=== PATIENT | female | born 1945 | race Caucasian/White ===

== ENCOUNTER 2018-03-08 08:46 | Emergency (ER) | payer MEDICARE, BC ==
[2018-03-08] MEDS ORDERED: predniSONE TAB* 20 MG PO ONE (09:05)
[2018-03-08] MEDS ORDERED: diPHENhydraMINE PO* 25 MG PO ONE (09:05)
[2018-03-08] MEDS ORDERED: Famotidine TAB* 20 MG PO ONE (09:05)
--- NOTE | 2018-03-08 09:10 | ED ---
Allergic Reaction/Systemic - HPI Summary HPI Summary: Pt is a 72 y/o female who presents to the ED c/o allergic reaction s/p insect stings. She states this morning she was stung outside her house three times on both wrists and her lower left leg. Pt states that these were not normal bees , and describes them as tiny, yellow, and swarming. She has been stung by both bees and yellowjackets in the past and has not had this sort of allergic reaction. Pt took 2 chlorotrimetron [employer]. She c/o dizziness, lightheadedness, itching, pain and sensitivity to the sting sites, anxiety, and mild SOB related to anxiety. Pt denies any LOC, headache, blurry vision, double vision, ear ache , sore throat, CP, new back pain, hematuria, or hematochezia. She describes her pain as a 7/10 in severity. Pt states her dog was swatting at his face because he was being swarmed by the insects, but he appeared normal afterwards. - History of Current Complaint Chief Complaint: EDAllergicReaction Hx Obtained From: Patient Onset/Duration: Sudden Onset, Still Present Timing: Constant Severity Currently: Moderate Pain Intensity: 7 Pain Scale Used: 0-10 Numeric Location: Discrete @ - LLE, bilateral UE, abdomen Character: Pruritus, Pain, Hives Aggravating Factor(s): Other - Insect stings, touch Alleviating Factor(s): Nothing Associated Signs And Symptoms: Positive: Lightheadedness, Rash. Negative: Chest Pain - Allergies/Home Medications Allergies/Adverse Reactions: Allergies Allergy/AdvReac Type Severity Reaction Status Date / Time erythromycin base Allergy Unknown Verified 03/08/18 08:52 Reaction Details amlodipine AdvReac Severe "massive Verified 03/08/18 08:52 fluid retention" metronidazole [From Flagyl] AdvReac Intermediate Vomiting Verified 03/08/18 08: 52 PAIN MEDICATIONS AdvReac Severe Vomiting Uncoded 03/08/18 08:52 PMH/Surg Hx/FS Hx/Imm Hx Endocrine/Hematology History: Reports: Hx Anticoagulant Therapy, Hx Thyroid Disease Denies: Hx Diabetes, Hx Systemic Lupus Erythematosus Cardiovascular History: Reports: Hx Angina, Hx Atrial Fibrillation, Hx Hypertension, Other Cardiovascular Problems/Disorders - cardiac ablation 2012 Denies: Hx Congestive Heart Failure, Hx Coronary Artery Disease, Hx Hypercholesterolemia - UNKNOWN, Hx Myocardial Infarction, Hx Pacemaker/ICD, Hx Valvular Heart Disease Respiratory History: Denies: Hx Asthma, Hx Chronic Obstructive Pulmonary Disease (COPD), Other Respiratory Problems/Disorders GI History: Reports: Hx Diverticulosis, Hx Gastroesophageal Reflux Disease, Hx Obstructive Bowel, Other GI Disorders - DIVERTICULITIS,GERD History: Reports: Other Problems/Disorders - HX OVARIAN TUMOR (REMOVED) Denies: Hx Dialysis, Hx Renal Disease Musculoskeletal History: Reports: Hx Arthritis - Mild osteo arthritis right foot , Hx Back Problems, Hx Scoliosis Denies: Hx Rheumatoid Arthritis, Hx Osteoporosis Sensory History: Reports: Hx Contacts or Glasses Denies: Hx Hearing Aid Opthamlomology History: Reports: Hx Contacts or Glasses Neurological History: Denies: Hx Dementia Psychiatric History: Denies: Hx Anxiety, Hx Depression, Hx Panic Disorder - Cancer History Hx Chemotherapy: No - Surgical History Surgery Procedure, Year, and Place: OVARIAN CYST X2, HYSTERECTOMY 1977, ADHESIONS, OVARIAN TUMOR 1981, APPENDECTOMY, CARDIAC ABLATION 1982, TONSILLECTOMY, Hx Anesthesia Reactions: No Infectious Disease History: No Infectious Disease History: Denies: Hx Clostridium Difficile, Hx Hepatitis, Hx Human Immunodeficiency Virus (HIV), Hx of Known/Suspected MRSA, Hx Shingles, Hx Tuberculosis, Hx Known/ Suspected VRE, Hx Known/Suspected VRSA, History Other Infectious Disease, Traveled Outside the [place] in Last 30 Days - Family History Known Family History: Positive: Hypertension, Other - CVA - father - Social History Alcohol Use: Weekly Alcohol Amount: 1 55calorie beer/day Hx Substance Use: No Substance Use Type: Reports: None Hx Tobacco Use: Yes Smoking Status (MU): Former Smoker Type: Cigarettes Amount Used/How Often: 1 ppd Review of Systems Negative: Blurred Vision, Diplopia Negative: Sore Throat, Ear Ache Negative: Chest Pain Positive: Shortness Of Breath Negative: Other - Hematochezia Negative: hematuria Negative: Myalgia - back pain Positive: Rash - with hives, Other - Itching, pain/sensitivity to sting sites Neurological: Other - Dizziness, lightheadedness Negative: Headache Positive: Anxious All Other Systems Reviewed And Are Negative: No Physical Exam - Summary Physical Exam Summary: Appearance: Alert, conversive, nontoxic appearing Skin: Warm, dry, no mottling, no contusions, erythematous rash with hives to bilateral LE, UE, and abdomen. Stinger bite on LLE. HEENT: EOMI, PERRL, moist mucous membranes Neck: No masses on the neck, supple Respiratory: Clear to auscultation, breath sounds present, no rales, no rhonchi , no wheezes Cardiovascular: RRR, pulses are symmetrical in both lower and upper extremities Abdomen: Soft, non-tender Bowel Sounds: Present Musculoskeletal: No CVA tenderness, no obvious deformity, moving all extremities in a grossly normal manner Neurological: A&Ox3, CN II-XII Intact, moving all extremities symmetrically Psychiatric: Uncomfortable and anxious Triage Information Reviewed: Yes Vital Signs On Initial Exam: Initial Vitals Temp Pulse Resp BP Pulse Ox 97.9 F 87 18 167/108 98 03/08/18 08:47 03/08/18 08:47 03/08/18 08:47 03/08/18 08:47 03/08/18 08:47 Vital Signs Reviewed: Yes Diagnostics - Vital Signs Vital Signs Temp Pulse Resp BP Pulse Ox 03/08/18 08:47 97.9 F 87 18 167/108 98 - Laboratory Lab Statement: Any lab studies that have been ordered have been reviewed, and results considered in the medical decision making process. Re-Evaluation - Re-Evaluation First Eval Re-Evaluation Time: 09:55 Change: Improved Comment: Pt will go on steroids and will continue Benadryl and Pepcid for 3 days. Will follow up with her PCP. Allergic Reaction Course/Dx - Course Course Of Treatment: Pt is a 72 y/o female who presents to the ED c/o allergic reaction s/p 3 insect stings on both wrists and her lower left leg. Pt states that these were not normal bees, and describes them as tiny, yellow, and swarming. She has been stung by both bees and yellowjackets in the past and has not had this sort of allergic reaction. Pt took 2 chlorotrimetron [employer]. She c/o dizziness, lightheadedness, itching, pain and sensitivity to the sting sites, anxiety, and mild SOB related to anxiety. Pt denies any LOC, headache, blurry vision, double vision, ear ache, sore throat, CP, new back pain, hematuria, or hematochezia. A physical exam revealed erythematous rash with hives to bilateral LE, UE, and abdomen, stinger bite on LLE, and uncomfortable and anxious. Final dx is allergic reaction. Upon re-evaluation, pt will go on steroids and will continue Benadryl and Pepcid for 3 days. She is discharged and will follow up with her PCP. - Diagnoses Provider Diagnoses: Allergic reaction Discharge - Sign-Out/Discharge Documenting (check all that apply): Patient Departure - Discharge - Discharge Plan Condition: Stable Disposition: HOME Referrals: Andrae Bullock MD [Primary Care Provider] - 3 Days - Attestation Statements Document Initiated by Scribe: Yes Documenting Scribe: Clarissa Belcher Provider For Whom Scribe is Documenting (Include Credential): Marie Quinteros MD Scribe Attestation: Clarissa Smith, scribed for Marie Quinteros MD on 03/08/18 at 1001.
[2018-03-08 11:30] VITALS: BP 175/99
== END 2018-03-08 11:29 | disposition home or self-care (01) ==
LOC: ED 08:46
DX: T63.441A Toxic effect of venom of bees, accidental (unintentional), initial encounter (principal); R42 Dizziness and giddiness; L50.9 Urticaria, unspecified; Y92.009 Unspecified place in unspecified non-institutional (private) residence as the place of occurrence of the external cause; I48.91 Unspecified atrial fibrillation; Z79.01 Long term (current) use of anticoagulants; Z88.6 Allergy status to analgesic agent; Z88.1 Allergy status to other antibiotic agents; Z87.891 Personal history of nicotine dependence
CPT/HCPCS: 99283; A9270-GY; J7512

== ENCOUNTER 2020-06-07 22:03 | Inpatient (IN) ==
[2020-06-07] MEDS ORDERED: Ondansetron 4 mg VIAL 2 MG/ML 2 ml VIAL IV ONE (23:28)
[2020-06-07] MEDS ORDERED: NS 0.9% 1000 ml BAG 1,000 ML IV ONE (23:28)
[2020-06-07] MEDS ORDERED: Morphine 4 MG/ML VIAL (1 ml) IV ONE (23:30)
[2020-06-07] MEDS ORDERED: Morphine 2 MG/ML SYRINGE IV ONE (23:33)
[2020-06-08 00:03] LABS: ABS Eosinophils 0.1 10^3/ul (0-0.6); ABS Lymphocytes 1.5 10^3/ul (1.0-4.8); ABS Monocytes 0.9 10^3/ul (0-0.8); ABS Neutrophils 5.9 10^3/ul (1.5-7.7); Eosinophil % 0.9 %; Hematocrit 40 % (35-47); Hemoglobin 13.6 g/dL (12.0-16.0); Lymphocyte % 17.5 %; Mean Corpuscular HGB Conc 34 g/dL (31-36); Mean Corpuscular Hemoglobin 30 pg (27-31); Mean Corpuscular Volume 87 fL (80-97); Mean Platelet Volume 8.5 fL (7.4-10.4); Platelet Count 291 10^3/uL (150-450); Red Blood Count 4.57 10^6 /uL (3.70-4.87); Red Cell Distribution Width 14 % (10-15); White Blood Count 8.4 10^3/uL (3.5-10.8)
[2020-06-08 00:21] LABS: Albumin/Globulin Ratio 1.7 (1-3); C Reactive Protein 106.64 mg/L (<8.01); Calcium 9.2 mg/dL (8.6-10.3); EGFR African American 96.8 (>60); Globulin 2.4 g/dL (2-4); Potassium 3.6 mmol/L (3.5-5.0); Total Bilirubin 0.8 mg/dL (0.2-1.0); Total Protein 6.4 g/dL (6.4-8.9)
[2020-06-08] MEDS ORDERED: Morphine 4 MG/ML VIAL (1 ml) IV ONE (00:57)
[2020-06-08] MEDS ORDERED: Iohexol 300 (CONTRAST) 10 ML SDV IV ONE (02:00)
[2020-06-08] MEDS ORDERED: NS 0.9% 1000 ml BAG 1,000 ML IV SCH (04:15)
[2020-06-08] MEDS ORDERED: Metoprolol Tartrate 5 mg VIAL 5 ml VIAL (1 mg/ml) IV PRN (04:53)
[2020-06-08 04:55] LABS: Urine Appearance Clear; Urine Bilirubin Negative (Negative); Urine Blood 1+ (Negative); Urine Color Yellow; Urine Glucose Negative (Negative); Urine Ketones 2+ (Negative); Urine Nitrite Negative (Negative); Urine Protein Negative (Negative); Urine Specific Gravity 1.034 (1.010-1.030); Urine Urobilinogen Negative (Negative)
[2020-06-08 04:57] LABS: Urine Bacteria Absent (Absent); Urine Red Blood Cell Trace(0-2/hpf) (Absent); Urine Squamous Epithelial Cell Present (Absent); Urine White Blood Cell Trace(0-5/hpf) (Absent)
[2020-06-08] MEDS ORDERED: Enoxaparin 80 MG/0.8 ML SYR SUBCUT SCH (05:00)
[2020-06-08] MEDS: Ondansetron 4 mg VIAL 2 MG/ML 2 ml VIAL IV PRN ×3 (05:00→20:04)
[2020-06-08] MEDS: NS 0.9% 1000 ml BAG 1,000 ML IV SCH ×2 (07:13→17:17)
[2020-06-08] MEDS: Enoxaparin 80 MG/0.8 ML SYR SUBCUT SCH ×2 (08:24→20:04)
[2020-06-08] MEDS: Levothyroxine 100 MCG/5 ML VIAL IV SCH (08:27)
[2020-06-08] MEDS ORDERED: Remdesivir 200 mg LOADING DOSE X1 (LIQ Vial) IV ONE (16:00)
[2020-06-08] MEDS: Dexamethasone IV 4 MG/ML VIAL 1 ml VIAL IV SLOW PU SCH (17:22)
[2020-06-09] MEDS: NS 0.9% 1000 ml BAG 1,000 ML IV SCH ×2 (06:11→16:05)
[2020-06-09] MEDS: Levothyroxine 100 MCG/5 ML VIAL IV SCH (06:56)
[2020-06-09 07:35] LABS: ABS Lymphocytes 0.8 10^3/ul (1.0-4.8); ABS Monocytes 0.3 10^3/ul (0-0.8); ABS Neutrophils 5.4 10^3/ul (1.5-7.7); Hematocrit 37 % (35-47); Hemoglobin 12.6 g/dL (12.0-16.0); Lymphocyte % 11.7 %; Mean Corpuscular HGB Conc 34 g/dL (31-36); Mean Corpuscular Hemoglobin 30 pg (27-31); Mean Corpuscular Volume 87 fL (80-97); Platelet Count 261 10^3/uL (150-450); Red Blood Count 4.23 10^6 /uL (3.70-4.87); Red Cell Distribution Width 13 % (10-15); White Blood Count 6.6 10^3/uL (3.5-10.8)
[2020-06-09 07:52] LABS: BUN/Creatinine Ratio 29.7 (8-20); Calcium 8.7 mg/dL (8.6-10.3); EGFR African American 109.2 (>60); EGFR Non-African American 90.2 (>60); Potassium 4.3 mmol/L (3.5-5.0)
[2020-06-09] MEDS: Enoxaparin 80 MG/0.8 ML SYR SUBCUT SCH ×2 (08:13→19:52)
[2020-06-09 09:21] LABS: Erythrocyte Sed Rate 22 mm/Hr (0-29)
[2020-06-09] MEDS ORDERED: Ondansetron ODT 4 mg TAB 4 MG TAB PO PRN (11:44)
[2020-06-09] MEDS ORDERED: Nitroglycerin 0.3 mg TAB SL PRN (13:27)
[2020-06-09] MEDS: Dexamethasone IV 4 MG/ML VIAL 1 ml VIAL IV SLOW PU SCH (16:04)
[2020-06-09] MEDS: Remdesivir 5 MG/ML LIQ IV Vial 100 MG in NS 0.9% 250 ml 230 ML IV SCH (16:05)
[2020-06-10] MEDS: NS 0.9% 1000 ml BAG 1,000 ML IV SCH ×2 (02:03→10:35)
[2020-06-10 07:54] LABS: ABS Lymphocytes 1.1 10^3/ul (1.0-4.8); ABS Monocytes 0.6 10^3/ul (0-0.8); ABS Neutrophils 7.6 10^3/ul (1.5-7.7); Hematocrit 33 % (35-47); Hemoglobin 11.2 g/dL (12.0-16.0); Lymphocyte % 11.6 %; Mean Corpuscular HGB Conc 34 g/dL (31-36); Mean Corpuscular Hemoglobin 30 pg (27-31); Mean Corpuscular Volume 88 fL (80-97); Mean Platelet Volume 9.1 fL (7.4-10.4); Platelet Count 255 10^3/uL (150-450); Red Blood Count 3.75 10^6 /uL (3.70-4.87); Red Cell Distribution Width 13 % (10-15); White Blood Count 9.2 10^3/uL (3.5-10.8)
[2020-06-10 08:06] LABS: BUN/Creatinine Ratio 32.7 (8-20); Calcium 8.2 mg/dL (8.6-10.3); EGFR African American 138.7 (>60); EGFR Non-African American 114.6 (>60); Potassium 3.9 mmol/L (3.5-5.0)
[2020-06-10] MEDS: Enoxaparin 80 MG/0.8 ML SYR SUBCUT SCH ×2 (09:01→19:10)
[2020-06-10] MEDS: Dexamethasone IV 4 MG/ML VIAL 1 ml VIAL IV SLOW PU SCH (16:13)
[2020-06-10] MEDS: Remdesivir 5 MG/ML LIQ IV Vial 100 MG in NS 0.9% 250 ml 230 ML IV SCH (16:16)
[2020-06-11 06:08] LABS: ABS Lymphocytes 1.6 10^3/ul (1.0-4.8); ABS Monocytes 0.6 10^3/ul (0-0.8); ABS Neutrophils 5.8 10^3/ul (1.5-7.7); Hematocrit 32 % (35-47); Hemoglobin 11.4 g/dL (12.0-16.0); Lymphocyte % 20.2 %; Mean Corpuscular HGB Conc 35 g/dL (31-36); Mean Corpuscular Hemoglobin 30 pg (27-31); Mean Corpuscular Volume 85 fL (80-97); Mean Platelet Volume 8.8 fL (7.4-10.4); Platelet Count 258 10^3/uL (150-450); Red Blood Count 3.77 10^6 /uL (3.70-4.87); Red Cell Distribution Width 13 % (10-15)
[2020-06-11] MEDS: Enoxaparin 80 MG/0.8 ML SYR SUBCUT SCH ×2 (10:53→21:28)
[2020-06-11] MEDS: Dexamethasone IV 4 MG/ML VIAL 1 ml VIAL IV SLOW PU SCH (16:43)
[2020-06-11] MEDS: Remdesivir 5 MG/ML LIQ IV Vial 100 MG in NS 0.9% 250 ml 230 ML IV SCH (16:43)
[2020-06-12 08:28] LABS: ABS Lymphocytes 1.8 10^3/ul (1.0-4.8); ABS Monocytes 0.7 10^3/ul (0-0.8); ABS Neutrophils 6.5 10^3/ul (1.5-7.7); Hematocrit 34 % (35-47); Hemoglobin 11.9 g/dL (12.0-16.0); Lymphocyte % 20.2 %; Mean Corpuscular HGB Conc 35 g/dL (31-36); Mean Corpuscular Hemoglobin 30 pg (27-31); Mean Corpuscular Volume 86 fL (80-97); Mean Platelet Volume 9.5 fL (7.4-10.4); Platelet Count 276 10^3/uL (150-450); Red Cell Distribution Width 14 % (10-15); White Blood Count 9.1 10^3/uL (3.5-10.8)
[2020-06-12 08:36] LABS: Albumin 3.5 g/dL (3.2-5.2); Albumin/Globulin Ratio 1.7 (1-3); BUN/Creatinine Ratio 24.6 (8-20); Calcium 8.6 mg/dL (8.6-10.3); EGFR African American 115.4 (>60); EGFR Non-African American 95.4 (>60); Globulin 2.1 g/dL (2-4); Potassium 4.1 mmol/L (3.5-5.0); Total Bilirubin 0.2 mg/dL (0.2-1.0); Total Protein 5.6 g/dL (6.4-8.9)
[2020-06-12 11:35] VITALS: BP 171/73
[2020-06-12] MEDS: Enoxaparin 80 MG/0.8 ML SYR SUBCUT SCH (12:20)
[2020-06-12] MEDS: Dexamethasone IV 4 MG/ML VIAL 1 ml VIAL IV SLOW PU SCH (16:15)
[2020-06-12] MEDS: Remdesivir 5 MG/ML LIQ IV Vial 100 MG in NS 0.9% 250 ml 230 ML IV SCH (16:15)
== END 2020-06-12 18:00 | disposition home or self-care (01) ==
LOC: SSU 22:03 → ED 22:03 → MED 06-08 16:35
PROVIDERS: ADMIT Hospitalist; ATTEND Internal Medicine

== ENCOUNTER 2021-08-29 21:42 | Inpatient (IN) ==
[2021-08-29] MEDS ORDERED: HYDROmorphone 1 MG/1 ML SYRINGE IV ONE (22:06)
[2021-08-29 22:12] LABS: ABS Lymphocytes 1.3 10^3/ul (1.0-4.8); ABS Monocytes 1.1 10^3/ul (0-0.8); ABS Neutrophils 12.9 10^3/ul (1.5-7.7); Eosinophil % 0.1 %; Hematocrit 42 % (35-47); Hemoglobin 14.4 g/dL (12.0-16.0); Lymphocyte % 8.6 %; Mean Corpuscular HGB Conc 34 g/dL (31-36); Mean Corpuscular Hemoglobin 29 pg (27-31); Mean Corpuscular Volume 86 fL (80-97); Mean Platelet Volume 9.1 fL (7.4-10.4); Platelet Count 321 10^3/uL (150-450); Red Blood Count 4.95 10^6 /uL (3.70-4.87); Red Cell Distribution Width 14 % (10-15); White Blood Count 15.4 10^3/uL (3.5-10.8)
[2021-08-29 22:31] LABS: Albumin 4.4 g/dL (3.2-5.2); Albumin/Globulin Ratio 1.7 (1-3); C Reactive Protein 10.52 mg/L (<8.01); Calcium 10.6 mg/dL (8.6-10.3); Globulin 2.6 g/dL (2-4); Potassium 4.4 mmol/L (3.5-5.0); Total Bilirubin 1.1 mg/dL (0.2-1.0); eGFR CKD-EPI 66.3 (>60)
[2021-08-30] MEDS ORDERED: Ondansetron 4 mg VIAL 2 MG/ML 2 ml VIAL IV ONE (00:14)
[2021-08-30] MEDS: HYDROmorphone 0.5 MG/0.5 ML SYRINGE IV SLOW PU PRN ×5 (02:09→20:34)
[2021-08-30] MEDS: Lactated Ringers 1000 ml BAG 1,000 ML IV SCH ×2 (02:09→16:14)
[2021-08-30 06:24] LABS: ABS Lymphocytes 1.5 10^3/ul (1.0-4.8); ABS Monocytes 1.1 10^3/ul (0-0.8); ABS Neutrophils 8.9 10^3/ul (1.5-7.7); Eosinophil % 0.3 %; Hematocrit 42 % (35-47); Hemoglobin 14.1 g/dL (12.0-16.0); Lymphocyte % 13.3 %; Mean Corpuscular HGB Conc 34 g/dL (31-36); Mean Corpuscular Hemoglobin 29 pg (27-31); Mean Corpuscular Volume 86 fL (80-97); Mean Platelet Volume 9.4 fL (7.4-10.4); Platelet Count 320 10^3/uL (150-450); Red Blood Count 4.83 10^6 /uL (3.70-4.87); Red Cell Distribution Width 14 % (10-15); White Blood Count 11.6 10^3/uL (3.5-10.8)
[2021-08-30 06:42] LABS: Albumin 4.2 g/dL (3.2-5.2); Albumin/Globulin Ratio 1.8 (1-3); Calcium 10.2 mg/dL (8.6-10.3); Globulin 2.4 g/dL (2-4); Potassium 4.2 mmol/L (3.5-5.0); Total Bilirubin 0.9 mg/dL (0.2-1.0); Total Protein 6.6 g/dL (6.4-8.9); eGFR CKD-EPI 76.5 (>60)
[2021-08-30 07:05] LABS: Urine Appearance Turbid; Urine Bilirubin Negative (Negative); Urine Blood Negative (Negative); Urine Color Yellow; Urine Glucose Negative (Negative); Urine Ketones Trace (Negative); Urine Nitrite Negative (Negative); Urine Protein Negative (Negative); Urine Specific Gravity 1.028 (1.002-1.030); Urine Urobilinogen Negative (Negative)
[2021-08-30] MEDS: Ondansetron 4 mg VIAL 2 MG/ML 2 ml VIAL IV PRN ×2 (08:26→20:33)
[2021-08-30] MEDS ORDERED: Enoxaparin 80 MG/0.8 ML SYR SUBCUT SCH (17:00)
[2021-08-30] MEDS: Enoxaparin 80 MG/0.8 ML SYR SUBCUT SCH (20:33)
[2021-08-31] MEDS: HYDROmorphone 0.5 MG/0.5 ML SYRINGE IV SLOW PU PRN ×6 (02:00→22:26)
[2021-08-31] MEDS: Ondansetron 4 mg VIAL 2 MG/ML 2 ml VIAL IV PRN ×3 (02:05→18:46)
[2021-08-31] MEDS: Lactated Ringers 1000 ml BAG 1,000 ML IV SCH ×2 (05:14→22:31)
[2021-08-31 06:26] LABS: ABS Basophils 0.1 10^3/ul (0-0.2); ABS Eosinophils 0.1 10^3/ul (0-0.6); ABS Neutrophils 5.9 10^3/ul (1.5-7.7); Hematocrit 39 % (35-47); Hemoglobin 13.3 g/dL (12.0-16.0); Lymphocyte % 21.7 %; Mean Corpuscular HGB Conc 34 g/dL (31-36); Mean Corpuscular Hemoglobin 30 pg (27-31); Mean Corpuscular Volume 87 fL (80-97); Mean Platelet Volume 9.2 fL (7.4-10.4); Platelet Count 285 10^3/uL (150-450); Red Cell Distribution Width 14 % (10-15); White Blood Count 9.1 10^3/uL (3.5-10.8)
[2021-08-31 06:43] LABS: Albumin 3.8 g/dL (3.2-5.2); Albumin/Globulin Ratio 1.7 (1-3); Calcium 9.5 mg/dL (8.6-10.3); Direct Bilirubin 0.1 mg/dL (0.03-0.18); Globulin 2.2 g/dL (2-4); Indirect Bilirubin 0.7 mg/dL (0.3-1.0); Magnesium 1.9 mg/dL (1.9-2.7); Potassium 3.8 mmol/L (3.5-5.0); Total Bilirubin 0.8 mg/dL (0.2-1.0); eGFR CKD-EPI 80.2 (>60)
[2021-08-31] MEDS: Enoxaparin 80 MG/0.8 ML SYR SUBCUT SCH ×2 (08:26→21:17)
[2021-08-31] MEDS ORDERED: Pantoprazole VIAL 40 MG VIAL IV ONE (08:59)
[2021-08-31] MEDS ORDERED: Diatrizoate Meg/Sod(CONTRAST) 30 ML ORAL.SOLN ONE (09:31)
[2021-08-31] MEDS ORDERED: Magnesium Sulfate IV 1GM/100ML 1 GM/100 ML BAG IV ONE (12:18)
[2021-08-31] MEDS ORDERED: KCL 10 MEQ/50 ML IVPREMIX 10 MEQ/50 ML BAG IV ONE (12:18)
[2021-08-31] MEDS ORDERED: Perflutren Lipid Microsphere 3 ML VIAL ONE (16:07)
[2021-09-01 05:50] LABS: Potassium 3.7 mmol/L (3.5-5.0); eGFR CKD-EPI 85.5 (>60)
[2021-09-01] MEDS: Enoxaparin 80 MG/0.8 ML SYR SUBCUT SCH ×2 (08:06→20:41)
[2021-09-01] MEDS: Lactated Ringers 1000 ml BAG 1,000 ML IV SCH (11:04)
[2021-09-01] MEDS: HYDROmorphone 0.5 MG/0.5 ML SYRINGE IV SLOW PU PRN ×2 (15:12→21:39)
[2021-09-01] MEDS: Ondansetron 4 mg VIAL 2 MG/ML 2 ml VIAL IV PRN ×2 (15:39→21:39)
[2021-09-02] MEDS: HYDROmorphone 0.5 MG/0.5 ML SYRINGE IV SLOW PU PRN ×3 (00:40→09:04)
[2021-09-02] MEDS: Lactated Ringers 1000 ml BAG 1,000 ML IV SCH (01:11)
[2021-09-02] MEDS: Ondansetron 4 mg VIAL 2 MG/ML 2 ml VIAL IV PRN ×2 (03:49→09:20)
[2021-09-02 06:07] LABS: Calcium 8.5 mg/dL (8.6-10.3); Potassium 3.8 mmol/L (3.5-5.0); eGFR CKD-EPI 92.6 (>60)
[2021-09-02] MEDS: Levothyroxine 100 MCG/5 ML VIAL IV SCH (10:15)
[2021-09-02 11:00] LABS: Magnesium 1.9 mg/dL (1.9-2.7)
[2021-09-02 11:02] LABS: ABS Eosinophils 0.1 10^3/ul (0-0.6); ABS Lymphocytes 1.3 10^3/ul (1.0-4.8); ABS Monocytes 0.6 10^3/ul (0-0.8); ABS Neutrophils 2.8 10^3/ul (1.5-7.7); Eosinophil % 2.1 %; Hematocrit 35 % (35-47); Hemoglobin 11.8 g/dL (12.0-16.0); Lymphocyte % 26.3 %; Mean Corpuscular HGB Conc 34 g/dL (31-36); Mean Corpuscular Hemoglobin 30 pg (27-31); Mean Corpuscular Volume 87 fL (80-97); Mean Platelet Volume 8.8 fL (7.4-10.4); Platelet Count 250 10^3/uL (150-450); Red Blood Count 3.99 10^6 /uL (3.70-4.87); Red Cell Distribution Width 14 % (10-15); White Blood Count 4.9 10^3/uL (3.5-10.8)
[2021-09-02] MEDS ORDERED: ceFOXitin 2 GM IVPREMIX 2 GM/50 ML BAG ONE (11:40)
[2021-09-02] MEDS ORDERED: Midazolam 2 mg/2 ml VIAL 1 mg/ml 2 ml VIAL (2 mg) ONE (12:23)
[2021-09-02] MEDS ORDERED: fentaNYL 100 mcg/2 ml 50 MCG/ML VIAL ONE ×3 (12:23→17:33)
[2021-09-02] MEDS ORDERED: Propofol 10 MG/ML 20 ML BTL ONE (12:23)
[2021-09-02] MEDS ORDERED: Lidocaine 2% PF 5 ML VIAL ONE (12:23)
[2021-09-02] MEDS ORDERED: Dexamethasone IV 4 MG/ML VIAL 1 ml VIAL ONE (12:23)
[2021-09-02] MEDS ORDERED: Rocuronium 50 mg VIAL 10 mg/ml 5 ml VIAL (50 mg) ONE ×3 (12:23→15:41)
[2021-09-02] MEDS ORDERED: Bupivacaine 0.25% EPI 200,000 30 ML SDV ONE (12:43)
[2021-09-02] MEDS ORDERED: DiMENhydriNATE IV 50 mg/ml 1 ml VIAL IV PUSH PRN (14:57)
[2021-09-02] MEDS ORDERED: Naloxone 0.4 mg VIAL 0.4 mg/ml 1 ml VIAL IV PRN (14:57)
[2021-09-02] MEDS ORDERED: Acetaminophen IV 1 GM/100ML 100 ML IV PRN (14:57)
[2021-09-02] MEDS ORDERED: Ondansetron 4 mg VIAL 2 MG/ML 2 ml VIAL IV PRN (14:57)
[2021-09-02] MEDS ORDERED: EPHEDrine (Pressors) 50 MG/ML VIAL ONE (15:07)
[2021-09-02] MEDS ORDERED: HYDROmorphone 0.5 MG/0.5 ML SYRINGE ONE (16:07)
[2021-09-02] MEDS ORDERED: Ondansetron 4 mg VIAL 2 MG/ML 2 ml VIAL ONE (16:27)
[2021-09-02] MEDS ORDERED: Naloxone 0.4 mg VIAL 0.4 mg/ml 1 ml VIAL IV PUSH PRN (17:26)
[2021-09-02] MEDS ORDERED: Acetaminophen IV 1 GM/100ML 100 ML IV ONE (17:33)
[2021-09-02] MEDS: fentaNYL 100 mcg/2 ml 50 MCG/ML VIAL IV PRN ×4 (17:35→18:03)
[2021-09-02] MEDS ORDERED: HYDROmorphone PCA 20 MG/20 ML PCA.SYRING PCA SCH ×2 (18:00)
[2021-09-02] MEDS ORDERED: HYDROmorphone 1 MG/1 ML SYRINGE ONE (18:04)
[2021-09-02] MEDS: HYDROmorphone 1 MG/1 ML SYRINGE IV PRN ×5 (18:05→18:45)
[2021-09-03] MEDS: D5W 1/2 NS w/KCL 20 MEQ IVFLUID 1000 ML IV SCH ×2 (03:25→22:05)
[2021-09-03] MEDS: Ondansetron 4 mg VIAL 2 MG/ML 2 ml VIAL IV PRN ×3 (03:45→22:06)
[2021-09-03 05:11] LABS: ABS Lymphocytes 0.6 10^3/ul (1.0-4.8); ABS Monocytes 0.7 10^3/ul (0-0.8); ABS Neutrophils 8.2 10^3/ul (1.5-7.7); Eosinophil % 0.2 %; Hematocrit 38 % (35-47); Hemoglobin 12.7 g/dL (12.0-16.0); Lymphocyte % 6.7 %; Mean Corpuscular HGB Conc 34 g/dL (31-36); Mean Corpuscular Hemoglobin 29 pg (27-31); Mean Corpuscular Volume 87 fL (80-97); Mean Platelet Volume 9.3 fL (7.4-10.4); Platelet Count 277 10^3/uL (150-450); Red Blood Count 4.38 10^6 /uL (3.70-4.87); Red Cell Distribution Width 14 % (10-15); White Blood Count 9.7 10^3/uL (3.5-10.8)
[2021-09-03 05:25] LABS: Albumin/Globulin Ratio 1.7 (1-3); Globulin 1.8 g/dL (2-4); Potassium 4.3 mmol/L (3.5-5.0); Total Bilirubin 0.4 mg/dL (0.2-1.0); Total Protein 4.8 g/dL (6.4-8.9); eGFR CKD-EPI 90.4 (>60)
[2021-09-03] MEDS ORDERED: Levothyroxine 100 MCG/5 ML VIAL IV SCH (06:00)
[2021-09-03] MEDS: Levothyroxine 100 MCG/5 ML VIAL IV SCH (08:36)
[2021-09-03] MEDS ORDERED: Lidocaine 1% VIAL 10 MG/ML VIAL INJ PRN (09:27)
[2021-09-03] MEDS ORDERED: Lidocaine 1% MPF 5 ML VIAL INJ PRN (10:21)
[2021-09-04] MEDS: Ondansetron 4 mg VIAL 2 MG/ML 2 ml VIAL IV PRN (04:06)
[2021-09-04] MEDS: Levothyroxine 100 MCG/5 ML VIAL IV SCH (05:22)
[2021-09-04 06:50] LABS: ABS Eosinophils 0.4 10^3/ul (0-0.6); ABS Lymphocytes 1.3 10^3/ul (1.0-4.8); ABS Monocytes 0.9 10^3/ul (0-0.8); ABS Neutrophils 6.2 10^3/ul (1.5-7.7); Hematocrit 34 % (35-47); Hemoglobin 11.5 g/dL (12.0-16.0); Lymphocyte % 14.9 %; Mean Corpuscular HGB Conc 34 g/dL (31-36); Mean Corpuscular Hemoglobin 30 pg (27-31); Mean Corpuscular Volume 87 fL (80-97); Mean Platelet Volume 9.8 fL (7.4-10.4); Platelet Count 255 10^3/uL (150-450); Red Blood Count 3.87 10^6 /uL (3.70-4.87); Red Cell Distribution Width 14 % (10-15); White Blood Count 8.9 10^3/uL (3.5-10.8)
[2021-09-04 07:06] LABS: Calcium 8.2 mg/dL (8.6-10.3); Potassium 4.1 mmol/L (3.5-5.0); eGFR CKD-EPI 89.7 (>60)
[2021-09-04] MEDS: D5W 1/2 NS w/KCL 20 MEQ IVFLUID 1000 ML IV SCH (07:28)
[2021-09-04] MEDS ORDERED: Acetaminophen IV 1 GM/100ML 100 ML IV PRN (09:02)
[2021-09-04] MEDS ORDERED: HYDROmorphone 0.5 MG/0.5 ML SYRINGE IV SLOW PU PRN (09:04)
[2021-09-04] MEDS ORDERED: HYDROmorphone 1 MG/1 ML SYRINGE IV SLOW PU PRN (09:04)
[2021-09-04] MEDS: D5W 1/2 NS KCl 20 meq 1000 ml 1,000 ML IV SCH ×2 (09:56→21:12)
[2021-09-04] MEDS: Enoxaparin 80 MG/0.8 ML SYR SUBCUT SCH ×2 (12:57→23:14)
[2021-09-05] MEDS: Levothyroxine 100 MCG/5 ML VIAL IV SCH (06:32)
[2021-09-05] MEDS: Enoxaparin 80 MG/0.8 ML SYR SUBCUT SCH (08:34)
[2021-09-05] MEDS: Ondansetron 4 mg VIAL 2 MG/ML 2 ml VIAL IV PRN (18:31)
[2021-09-06 06:28] LABS: ABS Basophils 0.1 10^3/ul (0-0.2); ABS Eosinophils 0.3 10^3/ul (0-0.6); ABS Lymphocytes 1.5 10^3/ul (1.0-4.8); ABS Monocytes 0.8 10^3/ul (0-0.8); ABS Neutrophils 5.1 10^3/ul (1.5-7.7); Eosinophil % 3.7 %; Hematocrit 35 % (35-47); Hemoglobin 11.5 g/dL (12.0-16.0); Lymphocyte % 18.8 %; Mean Corpuscular HGB Conc 33 g/dL (31-36); Mean Corpuscular Hemoglobin 29 pg (27-31); Mean Corpuscular Volume 87 fL (80-97); Mean Platelet Volume 8.9 fL (7.4-10.4); Platelet Count 318 10^3/uL (150-450); Red Blood Count 3.99 10^6 /uL (3.70-4.87); Red Cell Distribution Width 14 % (10-15); White Blood Count 7.8 10^3/uL (3.5-10.8)
[2021-09-06 06:43] LABS: Calcium 8.8 mg/dL (8.6-10.3); Magnesium 1.7 mg/dL (1.9-2.7); eGFR CKD-EPI 88.5 (>60)
[2021-09-06] MEDS: Ondansetron 4 mg VIAL 2 MG/ML 2 ml VIAL IV PRN ×2 (07:19→22:29)
[2021-09-06] MEDS ORDERED: Magnesium Sulfate 2 gm BAG 2 GM/50 ML BAG IVPB ONE (08:10)
[2021-09-07 06:17] LABS: Calcium 8.9 mg/dL (8.6-10.3); Magnesium 1.9 mg/dL (1.9-2.7); eGFR CKD-EPI 72.1 (>60)
[2021-09-07 11:31] VITALS: BP 133/77
== END 2021-09-07 15:50 | disposition home or self-care (01) | DRG 336 ==
LOC: ED 21:42 → EDHOLD 08-30 01:58 → SUATTDRO 08-30 01:58 → MED 08-30 07:53 → SSU 09-02 18:14
PROVIDERS: ADMIT Nurse Practitioner Family; ATTEND Hospitalist

== ENCOUNTER 2021-09-11 18:54 | Inpatient (IN) ==
[2021-09-11] MEDS ORDERED: NS 0.9% 1000 ml BAG 1,000 ML IV ONE (19:46)
[2021-09-11] MEDS ORDERED: Morphine 2 MG/ML SYRINGE IV ONE (19:48)
[2021-09-11] MEDS ORDERED: Ondansetron 4 mg VIAL 2 MG/ML 2 ml VIAL IV ONE (20:19)
[2021-09-11 20:37] LABS: INR 1.18 (0.86-1.15)
[2021-09-11 20:39] LABS: ABS Basophils 0.1 10^3/ul (0-0.2); ABS Eosinophils 0.3 10^3/ul (0-0.6); ABS Lymphocytes 2.2 10^3/ul (1.0-4.8); ABS Monocytes 1.2 10^3/ul (0-0.8); ABS Neutrophils 11.2 10^3/ul (1.5-7.7); Eosinophil % 1.8 %; Hematocrit 37 % (35-47); Hemoglobin 12.6 g/dL (12.0-16.0); Lymphocyte % 14.8 %; Mean Corpuscular HGB Conc 34 g/dL (31-36); Mean Corpuscular Hemoglobin 29 pg (27-31); Mean Corpuscular Volume 85 fL (80-97); Mean Platelet Volume 7.9 fL (7.4-10.4); Nucleated Red Blood Cells % 0.1; Platelet Count 505 10^3/uL (150-450); Red Blood Count 4.36 10^6 /uL (3.70-4.87); Red Cell Distribution Width 14 % (10-15); White Blood Count 15.1 10^3/uL (3.5-10.8)
[2021-09-11 21:00] LABS: ALT 18 U/L (7-52); AST 15 U/L (13-39); Albumin 3.9 g/dL (3.2-5.2); Albumin/Globulin Ratio 2.2 (1-3); Alkaline Phosphatase 61 U/L (35-149); Amylase 22 U/L (29-103); Anion Gap 8 mmol/L (2-11); Blood Urea Nitrogen 15 mg/dL (6-24); C Reactive Protein 4.94 mg/L (<8.01); CO2 Carbon Dioxide 27 mmol/L (22-32); Calcium 9.6 mg/dL (8.6-10.3); Chloride 99 mmol/L (101-111); Globulin 1.8 g/dL (2-4); Glucose 94 mg/dL (70-100); Lipase 31 U/L (11.0-82.0); Magnesium 1.9 mg/dL (1.9-2.7); Sodium 134 mmol/L (135-145); Total Protein 5.7 g/dL (6.4-8.9); eGFR CKD-EPI 75.4 (>60)
[2021-09-11] MEDS ORDERED: Iohexol 300 (CONTRAST) 10 ML SDV IV ONE (22:02)
[2021-09-12] MEDS ORDERED: Prochlorperazine 5 mg/ml 2 ml VIAL (10 mg) IV PRN (00:26)
[2021-09-12] MEDS: Lactated Ringers 1000 ml BAG 1,000 ML IV SCH ×2 (00:36→08:13)
[2021-09-12] MEDS: HYDROmorphone 0.5 MG/0.5 ML SYRINGE IV SLOW PU PRN ×2 (00:36→20:56)
[2021-09-12] MEDS: Ondansetron 4 mg VIAL 2 MG/ML 2 ml VIAL IV PRN ×2 (00:47→20:12)
[2021-09-12 00:52] LABS: Urine Appearance Clear; Urine Bilirubin Negative (Negative); Urine Blood Negative (Negative); Urine Color Straw; Urine Glucose Negative (Negative); Urine Ketones 1+ (Negative); Urine Nitrite Negative (Negative); Urine Protein Negative (Negative); Urine Specific Gravity 1.038 (1.002-1.030); Urine Urobilinogen Negative (Negative)
[2021-09-12] MEDS ORDERED: Enoxaparin 80 MG/0.8 ML SYR SUBCUT SCH (08:00)
[2021-09-12] MEDS: Calcium (OSCAL) 500 mg TAB PO SCH ×2 (11:04→20:12)
[2021-09-12] MEDS: NS 0.9% 1000 ml BAG 1,000 ML IV SCH (11:06)
[2021-09-13] MEDS: HYDROmorphone 0.5 MG/0.5 ML SYRINGE IV SLOW PU PRN ×3 (01:09→18:26)
[2021-09-13] MEDS: Ondansetron 4 mg VIAL 2 MG/ML 2 ml VIAL IV PRN ×2 (05:09→18:27)
[2021-09-13 05:47] LABS: ABS Basophils 0.1 10^3/ul (0-0.2); ABS Eosinophils 0.3 10^3/ul (0-0.6); ABS Lymphocytes 2.2 10^3/ul (1.0-4.8); ABS Monocytes 0.9 10^3/ul (0-0.8); ABS Neutrophils 8.7 10^3/ul (1.5-7.7); Eosinophil % 2.9 %; Hematocrit 36 % (35-47); Hemoglobin 12.3 g/dL (12.0-16.0); Lymphocyte % 17.9 %; Mean Corpuscular HGB Conc 34 g/dL (31-36); Mean Corpuscular Hemoglobin 29 pg (27-31); Mean Corpuscular Volume 85 fL (80-97); Mean Platelet Volume 7.9 fL (7.4-10.4); Nucleated Red Blood Cells % 0.1; Platelet Count 491 10^3/uL (150-450); Red Blood Count 4.26 10^6 /uL (3.70-4.87); Red Cell Distribution Width 14 % (10-15); White Blood Count 12.2 10^3/uL (3.5-10.8)
[2021-09-13 07:45] LABS: Albumin 3.6 g/dL (3.2-5.2); Albumin/Globulin Ratio 1.9 (1-3); Calcium 9.6 mg/dL (8.6-10.3); Direct Bilirubin 0.1 mg/dL (0.03-0.18); Globulin 1.9 g/dL (2-4); Indirect Bilirubin 0.3 mg/dL (0.3-1.0); Potassium 4.1 mmol/L (3.5-5.0); Total Bilirubin 0.4 mg/dL (0.2-1.0); Total Protein 5.5 g/dL (6.4-8.9); eGFR CKD-EPI 85.5 (>60)
[2021-09-13] MEDS: Calcium (OSCAL) 500 mg TAB PO SCH ×2 (08:56→20:51)
[2021-09-13] MEDS ORDERED: Magnesium Sulfate IV 1GM/100ML 1 GM/100 ML BAG IV ONE (09:34)
[2021-09-13] MEDS: Enoxaparin 80 MG/0.8 ML SYR SUBCUT SCH ×2 (11:36→21:40)
[2021-09-13] MEDS: NS 0.9% 1000 ml BAG 1,000 ML IV SCH (18:27)
[2021-09-14] MEDS: Ondansetron 4 mg VIAL 2 MG/ML 2 ml VIAL IV PRN (00:01)
[2021-09-14] MEDS: HYDROmorphone 0.5 MG/0.5 ML SYRINGE IV SLOW PU PRN (00:03)
[2021-09-14] MEDS: NS 0.9% 1000 ml BAG 1,000 ML IV SCH ×2 (05:03→21:00)
[2021-09-14 06:01] LABS: ABS Basophils 0.1 10^3/ul (0-0.2); ABS Eosinophils 0.3 10^3/ul (0-0.6); ABS Lymphocytes 2.6 10^3/ul (1.0-4.8); ABS Monocytes 0.7 10^3/ul (0-0.8); ABS Neutrophils 7.1 10^3/ul (1.5-7.7); Eosinophil % 2.5 %; Hematocrit 34 % (35-47); Hemoglobin 11.6 g/dL (12.0-16.0); Lymphocyte % 24.1 %; Mean Corpuscular HGB Conc 34 g/dL (31-36); Mean Corpuscular Hemoglobin 29 pg (27-31); Mean Corpuscular Volume 86 fL (80-97); Mean Platelet Volume 8.7 fL (7.4-10.4); Nucleated Red Blood Cells % 0.1; Platelet Count 435 10^3/uL (150-450); Red Blood Count 3.95 10^6 /uL (3.70-4.87); Red Cell Distribution Width 14 % (10-15); White Blood Count 10.8 10^3/uL (3.5-10.8)
[2021-09-14 06:13] LABS: C Reactive Protein 6.15 mg/L (<8.01); Calcium 9.1 mg/dL (8.6-10.3); Magnesium 1.8 mg/dL (1.9-2.7); Phosphorus 4.1 mg/dL (2.5-5.0); Potassium 4.1 mmol/L (3.5-5.0); eGFR CKD-EPI 80.2 (>60)
[2021-09-14] MEDS: Calcium (OSCAL) 500 mg TAB PO SCH (09:24)
[2021-09-14] MEDS: Enoxaparin 80 MG/0.8 ML SYR SUBCUT SCH (10:10)
[2021-09-14] MEDS ORDERED: Lidocaine 1% MPF 5 ML VIAL INJ ONE (10:53)
[2021-09-14] MEDS ORDERED: LORazepam 2 mg VIAL 1 ml IV PUSH ONE (12:34)
[2021-09-14] MEDS ORDERED: Lorazepam PYXIS KEY PRN (12:34)
[2021-09-14 13:15] LABS: Albumin 3.5 g/dL (3.2-5.2); Albumin/Globulin Ratio 2.1 (1-3); Globulin 1.7 g/dL (2-4); Magnesium 1.8 mg/dL (1.9-2.7); Phosphorus 3.7 mg/dL (2.5-5.0); Potassium 4.1 mmol/L (3.5-5.0); Total Bilirubin 0.5 mg/dL (0.2-1.0); Total Protein 5.2 g/dL (6.4-8.9); eGFR CKD-EPI 85.5 (>60)
[2021-09-14] MEDS ORDERED: TPN CENTRAL STANDARD BASE A CENT\\PICC SCH (17:00)
[2021-09-15] MEDS ORDERED: LORazepam 2 mg VIAL 1 ml IV PUSH ONE (09:00)
[2021-09-15] MEDS ORDERED: Lidocaine 1% MPF 5 ML VIAL INJ ONE (09:00)
[2021-09-15] MEDS: NS 0.9% 1000 ml BAG 1,000 ML IV SCH (12:50)
[2021-09-15] MEDS ORDERED: TPN CENTRAL STANDARD BASE A CENT\\PICC ONE (17:00)
[2021-09-16 05:29] LABS: ABS Eosinophils 0.2 10^3/ul (0-0.6); ABS Lymphocytes 1.3 10^3/ul (1.0-4.8); ABS Monocytes 0.8 10^3/ul (0-0.8); ABS Neutrophils 7.9 10^3/ul (1.5-7.7); Eosinophil % 2.4 %; Hematocrit 35 % (35-47); Hemoglobin 12.3 g/dL (12.0-16.0); Lymphocyte % 12.7 %; Mean Corpuscular HGB Conc 35 g/dL (31-36); Mean Corpuscular Hemoglobin 30 pg (27-31); Mean Corpuscular Volume 85 fL (80-97); Mean Platelet Volume 8.6 fL (7.4-10.4); Nucleated Red Blood Cells % 0.1; Platelet Count 446 10^3/uL (150-450); Red Blood Count 4.14 10^6 /uL (3.70-4.87); Red Cell Distribution Width 14 % (10-15); White Blood Count 10.3 10^3/uL (3.5-10.8)
[2021-09-16 06:03] LABS: Albumin 3.6 g/dL (3.2-5.2); Calcium 9.1 mg/dL (8.6-10.3); Globulin 1.8 g/dL (2-4); Magnesium 1.7 mg/dL (1.9-2.7); Phosphorus 2.7 mg/dL (2.5-5.0); Potassium 4.1 mmol/L (3.5-5.0); Total Bilirubin 0.5 mg/dL (0.2-1.0); Total Protein 5.4 g/dL (6.4-8.9); eGFR CKD-EPI 92.6 (>60)
[2021-09-16] MEDS ORDERED: Magnesium Sulfate 2 gm BAG 2 GM/50 ML BAG IVPB ONE (11:47)
[2021-09-16] MEDS ORDERED: TPN CENTRAL STANDARD BASE B CENT\\PICC SCH (17:00)
[2021-09-16] MEDS: TPN 24 HR with Dextrose 40% Water 500 ML, Amino Acid Infusion 10% 1,000 ML, Lipid Emuls... CENT\\PICC SCH (17:30)
[2021-09-17 06:21] LABS: ALT 12 U/L (7-52); AST 16 U/L (13-39); Albumin 3.6 g/dL (3.2-5.2); Albumin/Globulin Ratio 1.9 (1-3); Alkaline Phosphatase 64 U/L (35-149); Blood Urea Nitrogen 20 mg/dL (6-24); CO2 Carbon Dioxide 25 mmol/L (22-32); Calcium 9.1 mg/dL (8.6-10.3); Chloride 109 mmol/L (101-111); Cholesterol 107 mg/dL; Globulin 1.9 g/dL (2-4); Glucose 113 mg/dL (70-100); Magnesium 2.2 mg/dL (1.9-2.7); Phosphorus 2.8 mg/dL (2.5-5.0); Potassium 4.5 mmol/L (3.5-5.0); Prealbumin 18 mg/dL (18-38); Sodium 133 mmol/L (135-145); Total Protein 5.5 g/dL (6.4-8.9); Triglycerides 137 mg/dL
[2021-09-17] MEDS: TPN 24 HR with Dextrose 40% Water 500 ML, Amino Acid Infusion 10% 1,000 ML, Lipid Emuls... CENT\\PICC SCH (17:09)
[2021-09-18] MEDS: TPN 24 HR with Dextrose 40% Water 500 ML, Amino Acid Infusion 10% 1,000 ML, Lipid Emuls... CENT\\PICC SCH (17:20)
[2021-09-19 06:50] LABS: Calcium 9.3 mg/dL (8.6-10.3); Potassium 4.8 mmol/L (3.5-5.0); eGFR CKD-EPI 89.1 (>60)
[2021-09-20 07:57] VITALS: BP 114/65
== END 2021-09-20 11:35 | disposition home or self-care (01) | DRG 394 ==
LOC: ED 18:54 → EDHOLD 18:54 → SSU 09-12 08:09 → MEDTELE 09-16 23:51
PROVIDERS: ADMIT Hospitalist; ATTEND Surgery